=== PATIENT | female | born 1995 | race Caucasian/White ===

== ENCOUNTER 2023-12-21 21:54 | Emergency (ER) | payer BC ==
[2023-12-21 22:44] LABS: CORONAVIRUS COVID-19 NAA POSITIVE (NEGATIVE); INFLUENZA A NAA NEGATIVE (NEGATIVE); INFLUENZA B NAA NEGATIVE (NEGATIVE)
== END 2023-12-21 22:58 | disposition home or self-care (01) ==
LOC: MW.ED 21:54
DX: O98.513 Other viral diseases complicating pregnancy, third trimester (principal); U07.1 COVID-19; Z3A.30 30 weeks gestation of pregnancy
CPT/HCPCS: 0240U; 99284; 99283

== ENCOUNTER 2024-03-07 14:45 | Inpatient (IN) | payer BC ==
[2024-03-07] MEDS ORDERED: Water For Irrigation,Sterile 1,000 ML Container IRR PRN (14:55)
[2024-03-07] MEDS ORDERED: Misoprostol 200 MCG Tab PO PRN (14:55)
[2024-03-07] MEDS ORDERED: Sodium Chloride 0.9% 10 ML Syringe FLUSH PRN (14:55)
[2024-03-07] MEDS ORDERED: Tranexamic Acid IN NACL,ISO-OS 1,000 MG in Premix Bag 1 BAG IV PRN (14:55)
[2024-03-07] MEDS ORDERED: Sodium Chloride 0.9% 2.5 ML Syringe FLUSH PRN (14:55)
[2024-03-07] MEDS ORDERED: Sodium Chloride 0.9% 20 ML SDV IV PRN (14:55)
[2024-03-07] MEDS ORDERED: Lidocaine 1% 50 ML MDV INJECT PRN (14:55)
[2024-03-07] MEDS ORDERED: Terbutaline 1 MG/ML SDV SUBCUT PRN (14:55)
[2024-03-07] MEDS ORDERED: Carboprost Tromethamine 250 MCG/1 mL Vial IM PRN (14:55)
[2024-03-07] MEDS ORDERED: Ondansetron 4 MG/2 ML SDV IVPUSH PRN (14:55)
[2024-03-07] MEDS ORDERED: Methylergonovine 0.2 MG/1 ML Amp IM PRN (14:55)
[2024-03-07] MEDS ORDERED: Butorphanol 2 MG/ML SDV IVPUSH PRN (14:55)
[2024-03-07] MEDS ORDERED: Oxytocin/0.9 % Sodium Chloride 30 UNIT/500 ML BAG IV SCH (15:00)
[2024-03-07] MEDS: Lactated Ringers 1,000 ML IV SCH (15:20)
[2024-03-07] MEDS: Misoprostol 25 MCG (1/4 of 100 MCG) Tab VAG PRN ×2 (15:38→19:48)
[2024-03-07 15:46] LABS: HEMATOCRIT 33.5 % (37.0-47.0); HEMOGLOBIN 11.5 g/dL (12.0-16.0); MEAN CORPUSCULAR HEMOGLOBIN 28.8 pg (28.0-32.0); MEAN CORPUSCULAR HGB CONC 34.3 g/dL (32.0-36.0); MEAN PLATELET VOLUME 11.8 fL (9.4-12.3); PLATELET COUNT,PLT 213 K/uL (150-400); RED BLOOD CELL COUNT 3.99 M/uL (4.10-5.30)
[2024-03-07] MEDS ORDERED: Phenylephrine HCl In 0.9% NaCl 1 MG/10 ML Syringe IVPUSH PRN (16:36)
[2024-03-07] MEDS ORDERED: ePHEDrine 50 MG/ML SDV IVPUSH PRN ×2 (16:36)
[2024-03-07] MEDS: Ropivacaine HCl/PF 400 MG in Premix Bag 1 BAG EPIDUR SCH (23:34)
[2024-03-08] MEDS: Oxytocin/0.9 % Sodium Chloride 30 UNIT/500 ML BAG IV SCH (07:42)
[2024-03-08] MEDS ORDERED: Tranexamic Acid IN NACL,ISO-OS 1,000 MG in Premix Bag 1 BAG IV PRN (08:41)
[2024-03-08] MEDS ORDERED: Methylergonovine 0.2 MG/1 ML Amp IM PRN (08:41)
[2024-03-08 08:50] LABS: PH,UMBILICAL ARTERIAL 7.131 (7.18-7.38); PH,UMBILICAL VENOUS 7.224 (7.25-7.45)
[2024-03-08] MEDS: dexmedeTOMIDine HCl 200 MCG/2 ML SDV ONE (09:27)
[2024-03-08] MEDS: Benzocaine/Menthol 20%-0.5% Spray 78 GM Cannister TOP PRN (10:50)
[2024-03-08] MEDS: Lanolin 100% Cream 7 GM Tube TOP PRN (10:50)
[2024-03-08] MEDS: Witch Hazel Medicated Pads 40/Jar TOP PRN (10:50)
[2024-03-08] MEDS: Ibuprofen 800 MG Tab PO PRN (10:51)
[2024-03-08] MEDS: Prenatal Multivitamin with Calcium/Folic Acid/Iron Tab PO SCH (10:52)
[2024-03-08] MEDS: Acetaminophen 500 MG Tab PO PRN (12:21)
[2024-03-08] MEDS: Docusate Sodium 100 MG Cap PO PRN (12:47)
[2024-03-09 06:17] LABS: HEMOGLOBIN 9.7 g/dL (12.0-16.0)
== END 2024-03-09 11:50 | disposition home or self-care (01) | DRG 560 ==
LOC: MW.OB 14:45 → OBSVTOIN 03-08 07:41 → MW.OB 03-08 12:06
PROVIDERS: ADMIT Obstetrics & Gynecology; ATTEND Obstetrics & Gynecology
PROC: 10E0XZZ Delivery of Products of Conception, External Approach (ICD-10-PCS; principal; 2024-03-08)
PROC: 0KQM0ZZ Repair Perineum Muscle, Open Approach (ICD-10-PCS; 2024-03-08)
PROC: 3E0P7VZ Introduction of Hormone into Female Reproductive, Via Natural or Artificial Opening (ICD-10-PCS; 2024-03-08)
DX: O99.02 Anemia complicating childbirth (principal); D64.9 Anemia, unspecified; O70.1 Second degree perineal laceration during delivery; Z37.0 Single live birth; Z3A.40 40 weeks gestation of pregnancy; O48.0 Post-term pregnancy
CPT/HCPCS: 36415; 51702; 59025; 59409; 82803; 85014; 85018; 85027; 86592; 86850; 86900; 86901; A9270-GY; J2590; J2795; J3490; J7120

== ENCOUNTER 2025-08-05 00:02 | Inpatient (IN) | payer BC ==
[2025-08-05] MEDS ORDERED: Nalbuphine 10 MG/1 ML Vial IVPUSH PRN (00:49)
[2025-08-05] MEDS ORDERED: Water For Irrigation,Sterile 1,000 ML Container IRR PRN (00:49)
[2025-08-05] MEDS ORDERED: Terbutaline 1 MG/ML SDV SUBCUT PRN (00:49)
[2025-08-05] MEDS ORDERED: Sodium Chloride 0.9% 2.5 ML Syringe FLUSH PRN (00:49)
[2025-08-05] MEDS ORDERED: Ondansetron 4 MG/2 ML SDV IVPUSH PRN (00:49)
[2025-08-05] MEDS ORDERED: Carboprost Tromethamine 250 MCG/1 mL Vial IM PRN (00:49)
[2025-08-05] MEDS ORDERED: Sodium Chloride 0.9% 10 ML Syringe FLUSH PRN (00:49)
[2025-08-05] MEDS ORDERED: Oxytocin/0.9 % Sodium Chloride 30 UNIT/500 ML BAG IV SCH (01:00)
[2025-08-05 01:07] LABS: MEAN PLATELET VOLUME 10.4 fL (9.4-12.3); NRBC ABSOLUTE 0.00 K/uL (0.00-0.02); NRBC PERCENT 0.0 /100WBC (0.0-0.2); PLATELET COUNT,PLT 206 K/uL (150-400); RED BLOOD CELL COUNT 3.87 M/uL (4.10-5.30); WHITE BLOOD CELL COUNT,WBC 11.07 K/uL (3.9-11.3)
[2025-08-05] MEDS: Misoprostol 25 MCG (1/4 of 100 MCG) Tab VAG PRN (01:13)
[2025-08-05] MEDS ORDERED: Misoprostol 25 MCG (1/4 of 100 MCG) Tab VAG PRN (05:00)
[2025-08-05] MEDS: Lactated Ringers 1,000 ML IV SCH (06:15)
[2025-08-05] MEDS ORDERED: dexmedeTOMIDine HCl 200 MCG/2 ML SDV ONE (06:32)
[2025-08-05] MEDS ORDERED: Ropivacaine HCl/PF 200 ML ONE (06:32)
[2025-08-05] MEDS: Ropivacaine HCl/PF 400 MG in Premix Bag 1 BAG EPIDUR SCH (06:39)
[2025-08-05] MEDS ORDERED: ePHEDrine 50 MG/ML SDV IVPUSH PRN (06:51)
[2025-08-05] MEDS ORDERED: dexmedeTOMIDine HCl 200 MCG/2 ML SDV EPIDUR SCH (07:00)
[2025-08-05] MEDS: Oxytocin/0.9 % Sodium Chloride 30 UNIT/500 ML BAG IV SCH (08:48)
[2025-08-05] MEDS ORDERED: Lanolin 100% Cream 7 GM Tube TOP PRN (14:21)
[2025-08-05 14:26] LABS: PH,UMBILICAL ARTERIAL 7.27 (7.18-7.38); PH,UMBILICAL VENOUS 7.28 (7.25-7.45)
[2025-08-05] MEDS: Benzocaine/Menthol 20%-0.5% Spray 78 GM Cannister TOP PRN (15:00)
[2025-08-05] MEDS: Witch Hazel Medicated Pads 40/Jar TOP PRN (15:00)
[2025-08-06 06:00] LABS: BASOPHILS ABSOLUTE AUTO 0.05 K/uL (0.00-0.20); BASOPHILS PERCENT AUTO 0.4 % (0.0-1.0); EOSINOPHILS ABSOLUTE AUTO 0.07 K/uL (0.00-0.45); EOSINOPHILS PERCENT AUTO 0.6 % (0.0-6.0); IMMATURE GRAN ABSOLUTE AUTO 0.04 K/uL (0.00-0.05); IMMATURE GRAN PERCENT AUTO 0.4 % (0.0-0.4); LYMPHOCYTES ABSOLUTE AUTO 2.94 K/uL (1.00-4.80); LYMPHOCYTES PERCENT AUTO 26.4 % (24.0-44.0); MEAN PLATELET VOLUME 10.4 fL (9.4-12.3); MONOCYTES ABSOLUTE AUTO 0.50 K/uL (0.00-0.80); MONOCYTES PERCENT AUTO 4.5 % (0.0-8.0); NEUTROPHILS ABSOLUTE AUTO 7.52 K/uL (1.80-7.70); NEUTROPHILS PERCENT AUTO 67.7 % (41.0-71.0); NRBC ABSOLUTE 0.00 K/uL (0.00-0.02); NRBC PERCENT 0.0 /100WBC (0.0-0.2); PLATELET COUNT,PLT 223 K/uL (150-400); RED BLOOD CELL COUNT 3.59 M/uL (4.10-5.30); WHITE BLOOD CELL COUNT,WBC 11.12 K/uL (3.9-11.3)
== END 2025-08-06 15:00 | disposition home or self-care (01) | DRG 560 ==
LOC: OBSVTOIN 00:02 → MW.OB 00:02 → MW.MS 17:53 → MW.OB 17:59
PROVIDERS: ADMIT Obstetrics & Gynecology; ATTEND Obstetrics & Gynecology
PROC: 10E0XZZ Delivery of Products of Conception, External Approach (ICD-10-PCS; principal; 2025-08-05)
PROC: 3E0P7VZ Introduction of Hormone into Female Reproductive, Via Natural or Artificial Opening (ICD-10-PCS; 2025-08-05)
PROC: 0KQM0ZZ Repair Perineum Muscle, Open Approach (ICD-10-PCS; 2025-08-05)
PROC: 3E0R3BZ Introduction of Anesthetic Agent into Spinal Canal, Percutaneous Approach (ICD-10-PCS; 2025-08-05)
PROC: 00HU33Z Insertion of Infusion Device into Spinal Canal, Percutaneous Approach (ICD-10-PCS; 2025-08-05)
DX: O48.0 Post-term pregnancy (principal); Z37.0 Single live birth; O70.1 Second degree perineal laceration during delivery; O99.02 Anemia complicating childbirth; R87.810 Cervical high risk human papillomavirus (HPV) DNA test positive; O26.893 Other specified pregnancy related conditions, third trimester; Z3A.40 40 weeks gestation of pregnancy
CPT/HCPCS: 36415; 51702; 82803; 85025; 85027; 86592; 86850; 86900; 86901; A9270-GY; J0665; J2371; J2590; J2795; J7120